=== PATIENT | female | born 1950 | race Native Hawaiian/Other Pacific Islander ===

== ENCOUNTER 2018-08-27 06:26 | Day surgery (SDC) | payer MEDICARE ==
[2018-08-27 06:58] VITALS: BMI 22.3
[2018-08-27 07:14] VITALS: O2SAT 100
[2018-08-27] MEDS ORDERED: Lidocaine Hydrochloride 5 ML INJ ONE (08:12)
[2018-08-27] MEDS ORDERED: Propofol 10 mg/ml Inj (20 ML) ONE (08:12)
[2018-08-27 08:49] VITALS: TEMP 97.8
[2018-08-27 13:27] VITALS: BP 112/67; PULSE 58; RESP 14
== END 2018-08-27 10:15 | disposition home or self-care (01) ==
LOC: C.ENDO 06:26
PROVIDERS: ATTEND Internal Medicine Gastroenterology
DX: K62.1 Rectal polyp (principal); K64.9 Unspecified hemorrhoids
CPT/HCPCS: 45388; 88305; J2704

== ENCOUNTER 2018-11-05 08:51 | Outpatient (CLI) | payer MEDICARE | END 2018-11-05 08:52 | disposition home or self-care (01) | LOC: C.MAMMO 08:51 | DX: Z12.31 Encounter for screening mammogram for malignant neoplasm of breast (principal) ==